=== PATIENT | female | born 1960 | race Caucasian/White ===

== ENCOUNTER 2017-11-09 14:01 | Emergency (ER) | payer OTHER ==
[~2017-11-09] VITALS: Ht 157.5 cm; Wt 67.1 kg
[2017-11-09 14:09] VITALS: Ht 157.5 cm; Wt 67.1 kg
[2017-11-09 16:57] VITALS: BP 162/81
== END 2017-11-09 16:57 | disposition home or self-care (01) ==
LOC: ED 14:01
DX: S09.90XA Unspecified injury of head, initial encounter (principal); W51.XXXA Accidental striking against or bumped into by another person, initial encounter; Y93.89 Activity, other specified; Y92.89 Other specified places as the place of occurrence of the external cause; Y99.8 Other external cause status
CPT/HCPCS: J1885